=== PATIENT | female | born 1995 | race Caucasian/White ===

== ENCOUNTER 2025-06-18 08:54 | Emergency (ER) | payer OTHER, SELFPAY ==
[2025-06-18 08:55] VITALS: BP 180/90; PULSE 96; RESP 16; TEMP 36.5; O2SAT 98; BMI 40.9
--- NOTE | 2025-06-18 08:59 | EX.ED.VIS.PS ---
HPI HPI - Psych History of Present Illness Chief Complaint: Suicidal Narrative Narrative: Patient is a 29 year old presenting to the emergency department for suicidal ideation. Patient has a past medical history of substance abuse. States that she has been clean for 2 years. The last time she saw a psychiatrist was about 2 years ago. States that at that time she did not think she needed medication however she reports she continued to have mental health issues. Reports that over the past week she is having thoughts of harming herself. States that she is now beginning to fantasizes over suicide. Reports that she does not have a specific plan but has thought about multiple ways she would kill herself including a car crash or ingestion of medications. Denies any ingestion of medications or drugs prior to arrival today in an attempt to harm herself. She denies any physical complaints. She denies any homicidal ideation or plan, hallucinations, paranoia or delusions. She is not on any psychiatric medications. PFSH PFSH Home Medications ?Medication ?Instructions ?Recorded ?Last Taken ?Type NK 06/18/25 Unknown History Allergy/AdvReac Type Severity Reaction Status Date / Time No Known Allergies Allergy Verified 06/18/25 08:57 Social History Smoking Status: Never smoker ROS ROS ED ROS Narrative See HPI EXAM Physical Exam Narrative Exam Narrative: Vital signs: Reviewed General: Alert and orientedx3. No acute distress HEENT: Head is normocephalic and atraumatic, sinuses nontender, pupils equal round and reactive. Nares are patent. Oropharynx and throat exams normal. Neck: Supple without lymphadenopathy nontender Cardiovascular: Regular rate and rhythm, no murmurs. No rubs or gallops. Normal S1 and S2 Respiratory: Clear to auscultation bilaterally. No wheezes, rales, rhonchi Abdominal: Soft and nontender. Normal bowel sounds. No guarding or rebound. Nonsurgical abdomen Extremities: No tenderness. No bruising. Normal range of motion. Normal sensation. Skin: No rash or redness. The rest of the physical exam is unremarkable Const Vital Signs: 06/18/25 08:55 06/18/25 10:08 Temperature 97.7 F L Temperature Source Oral Pulse Rate 96 76 Respiratory Rate 16 16 Blood Pressure 180/90 H 152/84 H Blood Pressure Mean 120 106 Pulse Ox 98 99 Oxygen Delivery Method Room Air Psych mental status grossly normal Appearance: grossly normal, appropriate and well kempt Attitude: calm, No paranoid, No withdrawn and No uncooperative Activity / Motor Behavior: appropriate eye contact Speech: normal speech, No incoherent, No excessive, No minimal and No slow Mood & Affect: depressed and flat affect; Negative for elevated mood, anxious, tearful or labile affect Thought Process: normal thought process Thought Content: suicidality, No homicidality, No phobia(s), No delusion(s) and No hallucination(s) Attention / Concentration: attention grossly intact and concentration grossly intact Memory / Cognition: memory grossly intact MDM MDM MDM Narrative Medical decision making narrative: Patient is a 29-year-old female presenting to the emergency department for suicidal ideation. Patient was seen and examined. Vitals are stable. Patient resting in bed comfortably in no acute distress. Medical clearance labs were ordered and are unremarkable. Patient was pink slipped by myself for her suicidal ideation with plan. Discussed with social work who also evaluated the patient and agreed with inpatient psychiatric treatment. Patient accepted to [facility] for further management. Clinical impression: Suicidal ideation History & Record Review Discussion w/independent historian: Patient Lab Data Attestation: I reviewed the patient's lab results. Labs: Laboratory Results - last 24 hr 06/18/25 09:20 WBC 8.4 RBC 5.23 Hgb 15.1 H Hct 44.5 MCV 85.1 MCH 28.9 MCHC 33.9 RDW Std Deviation 35.8 RDW Coeff of Kael 11.7 Plt Count 290 MPV 10.1 Immature Gran % (Auto) 0.100 Neut % (Auto) 54.4 Lymph % (Auto) 34.8 Blount % (Auto) 6.9 Eos % (Auto) 3.2 Baso % (Auto) 0.6 Absolute Neuts (auto) 4.6 Absolute Lymphs (auto) 2.92 Nucleated RBC % 0 Sodium 139 Potassium 4.4 Chloride 106 Carbon Dioxide 20.7 L Anion Gap 12 BUN 12 Creatinine 0.91 Estim Creat Clear Calc 131.93 Est GFR (MDRD) Non-Af 89 BUN/Creatinine Ratio 12.9 Glucose 193 H Calcium 8.9 Serum , Qual NEGATIVE Urine Opiates Screen NEGATIVE U Buprenorphine Qual NEGATIVE Ur Oxycodone Screen NEGATIVE Urine Methadone Screen NEGATIVE Urine Fentanyl Screen NEGATIVE Ur Barbiturates Screen NEGATIVE Ur Phencyclidine Scrn NEGATIVE Ur Amphetamines Screen NEGATIVE U Benzodiazepines Scrn NEGATIVE Urine Cocaine Screen NEGATIVE U Cannabinoids Screen NEGATIVE Ethyl Alcohol < 10.1 Discharge Plan Triage Chief Complaint: Suicidal ED Provider: Cari Reaves Dx/Rx/DC Orders Prescriptions: No Action NK Primary Care Provider: Denice Ding Referrals: Denice Ding [Other] Print Language: Czech
[2025-06-18 09:43] LABS: Hematocrit 44.5 % (37-47); Hemoglobin 15.1 g/dL (12.0-15.0); Immature Granulocytes Count 0.010 X10^3/uL (0.0-0.0); Mean Corp Hgb Conc 33.9 g/dL (32-36); Mean Corpuscular Volume 85.1 fL (81-99); Mean Platelet Vol. 10.1 fl (6.2-12.0); NRBC Flagged by Analyzer 0 % (0-5); Platelet Count 290 K/mm3 (150-450); RBC Distribution Width CV 11.7 % (11.6-14.6); RBC Distribution Width SD 35.8 fl (35.1-43.9); Red Blood Count 5.23 M/mm3 (4.2-5.4); White Blood Count 8.4 K/mm3 (4.4-11.0)
[2025-06-18 10:01] LABS: Internal QC Validated? YES +Cl - CLEAR BKGD; Pregnancy, Serum, hCG Quali. NEGATIVE Negative; Record Kit Lot#, Serum Preg. 964736
[2025-06-18 10:08] VITALS: BP 152/84; PULSE 76; RESP 16; O2SAT 99
[2025-06-18 10:17] LABS: Barbiturate Urine NEGATIVE (< 200 ng/mL); Benzodiazepine Urine NEGATIVE (< 200 ng/mL); PCP Urine NEGATIVE (< 25 ng/mL); THC Urine NEGATIVE (< 50 ng/mL)
[2025-06-18 10:19] LABS: Alcohol, Blood (Medical)-Serum < 10.1 mg/dL (<=10.0)
[2025-06-18 10:20] LABS: Anion Gap 12 (5-15); BUN 12 mg/dL (4-19); BUN/Creat Ratio 12.9 RATIO (10-20); Calcium,Total 8.9 mg/dL (7.6-11.0); Carbon Dioxide 20.7 mmol/L (21.0-32.0); Chloride 106 mmol/L (98-108); Estimated Creatinine Clearance 131.93 ml/min (50-250); Glucose 193 mg/dL (70-99); Potassium 4.4 mmol/L (3.3-5.1)
[2025-06-18] MEDS: Nicotine (PBKC) 21 MG Patch TD (11:50)
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
--- NOTE | 2025-06-18 12:37 | CM.ED ---
Social Work Dixie Clayton called to determine if bed was available, referral sent. Patient was accepted to [facility] [place] unit, admitting physician is Dr. Patino. N2N is [phone] Opt 7. Patient aware of accepting facility. Tash Shelton MSW, MEDICAL ECONOMICS CONSULTANT
[2025-06-18 17:21] VITALS: BP 128/80; PULSE 78; RESP 18; TEMP 36.6; O2SAT 98
== END 2025-06-18 17:23 ==
PROVIDERS: Emergency Provider Student in an Organized Health Care Education/Training Program; Visit Provider Student in an Organized Health Care Education/Training Program
DX: R45.851 Suicidal ideations (principal)
CPT/HCPCS: 80048; 80307; 82077; 84703; 85025; 99284